=== PATIENT | male | born 1990 | race Caucasian/White ===

== ENCOUNTER 2017-09-22 12:24 | Emergency (ER) | payer BC ==
[2017-09-22] MEDS ORDERED: XYLOCAINE 1 % (PLAIN) ONE (12:26)
[2017-09-22] MEDS ORDERED: HYDROGEN PEROXIDE 3% ONE (12:34)
[2017-09-22 12:42] VITALS: BP 127/85; BMI 27.3
--- NOTE | 2017-09-22 13:01 | DR.GENAD ---
HPI - PCP Primary Care Physician: DONNIE - HPI Comment HPI Comment: HISTORY BELOW. TD UTD. - Complaint/Symptoms Chief Complaint Doctors Comments: LACERATION RIGHT INDEX FINGER. Chief Complaint:: CUT FINGER (RIGHT INDEX) - Nurses notes reviewed Nurses Notes Review: Yes - Source History Provided: Patient - Mode of Arrival Mode of Arrival: Ambulatory - Timing Onset of Chief Complaint: 09/22/17 Came on: Suddenly - Duration Duration: Constant Duration: Hours - Severity Severity: Moderate PMH - PMH Past Medical History: No Past Surgical History: No - Family History History of Family Medical Conditions: Yes Family Medical History: Cancer, Heart Failure - Social History Does patient currently use any type of tobacco product: No Have you used tobacco products in the last 12 months: No Type of Tobacco Use: None Does any household member use tobacco: No Alcohol Use: None Do you use any recreational Drugs:: No Lives With: Spouse Lives Where: Home - infectious screening In the last 2 months have you had wt loss of >10#?: NO Have you had fever, night sweats or hemotysis?: No Have you traveled outside the country in the last 6 months?: No Isolation: Standard ROS - Review of Systems Constitutional: No Symptoms Reported ENTM: No Symptoms Reported Respiratoy: No Symptoms Reported Cardiovascular: No Symptoms Reported Gastrointestinal/Abdominal: No Symptoms Reported Genitourinary: No Symptoms Reported Neurological: No Symptoms Reported Musculoskeletal: Right, Hand Integumentary: Other (2CM SUPERFICIAL LAC RT INDEX FINGER.) Hematologic/Lymphatic: No Symptoms Reported Endocrine: No Symptoms Reported All Other Systems: Reviewed and Negative PE - Vital Signs Vitals: Pulse Rate 76 Respiratory Rate 18 Blood Pressure 127/85 O2 Sat by Pulse Oximetry 99 - General Limitations: No Limitations General Appearance: Alert - Head Head Exam: Normal Inspection - Eyes Eye exam: Normal Appearance - Chest Chest Inspection: Symmetric Chest Wall Rise - Respiratory Respiratory Exam: Normal Lung Sounds Bilat - Cardiovascular Cardiovascular Exam: Regular Rate, Normal Rhythm, Normal Heart Sounds - Extremities Extremities Exam: Tenderness (2CM SUPERFICIAL LAC RIGHT INDEX FINGER.) - Neurologic Neurological Exam: Alert, Oriented X3 - Psychiatric Psychiatric Exam: Normal Affect, Normal Mood - Skin Skin Exam: Erythema MDM - Additional Information Additional Information Obtained From: Family - Differential Diagnosis Differential Diagnosis: LAC RT INDEX FINGER. Course - Treatment Treatment: SEE ORDERS. LAC CLEANED, GLUE AND STERI STRIP APPLIED IN ED BY NURSE. - Education/Counseling Education/Counseling: Patient, Family, Education Educated On: Diagnosis, Needs for Follow Up - Diagnosis Discharge Problem: Laceration of right index finger - Discharge Plan Disposition: 01 HOME, SELF-CARE Condition: Stable - Follow ups/Referrals Follow ups/Referrals: [facility],None [Primary Care Provider] - 3 days - Instructions Instructions: Tissue Adhesive Wound Care Additional Instructions: RETURN TO ED IF WORSE.
== END 2017-09-22 13:08 | disposition home or self-care (01) ==
LOC: ER 12:35
PROC: 0XQNXZZ Repair Right Index Finger, External Approach (ICD-10-PCS; principal; 2017-09-22)
DX: S61.210A Laceration without foreign body of right index finger without damage to nail, initial encounter (principal); W45.8XXA Other foreign body or object entering through skin, initial encounter; Y92.9 Unspecified place or not applicable
CPT/HCPCS: 12001; 99282; J2001